=== PATIENT | female | born 1965 | race Hispanic/Latino ===

== ENCOUNTER 2018-07-21 09:23 | Emergency (ER) | payer MEDICAID ==
[2018-07-21 09:44] VITALS: BP 161/119; PULSE 73; RESP 18; TEMP 97.6; O2SAT 95; BMI 26.6
--- NOTE | 2018-07-21 09:58 | ED PDOC ---
Arrival/HPI <Romeo Marinelli - Last Filed: 07/21/18 11:38> - History of Present Illness Narrative History of Present Illness (Text): 07/21/18 09:53 52F w/ no significant PMH reported that she stubbed R great toe on stairs yesterday evening. Patient soaked her toe in epsome salt and reported worsening in ecchymosis, edema, erythema. She reports she is unable to bear weight on her foot and is having difficulty ambulating at this time. She reports worsening in pain of her R great toe described as a throbbing sensation. ALL: Penicillin PMH: Denies Social: 1ppd active smoker x 35 years Time/Duration: 24 hours Symptom Onset: Sudden Symptom Course: Worsening Quality: Throbbing <Mayo Trujillo - Last Filed: 07/21/18 12:23> - General Chief Complaint: Lower Extremity Problem/Injury Time Seen by Provider: 07/21/18 09:27 Past Medical History - Provider Review Nursing Documentation Reviewed: Yes - Infectious Disease Hx of Infectious Diseases: None - Reproductive Currently : No - Psychiatric Hx Substance Use: No - Surgical History Hx Orthopedic Surgery: Yes (Right Ankle ([employer])) <Mayo Trujillo - Last Filed: 07/21/18 12:23> Family/Social History - Physician Review Nursing Documentation Reviewed: Yes Family/Social History: Unknown Family HX Smoking Status: Heavy Smoker > 10 Cigarettes Daily Hx Alcohol Use: No Hx Substance Use: No <Mayo Trujillo - Last Filed: 07/21/18 12:23> Allergies/Home Meds <Romeo Marinelli - Last Filed: 07/21/18 11:38> <Mayo Trujillo - Last Filed: 07/21/18 12:23> Allergies/Adverse Reactions: Allergies Penicillins Allergy (Verified 07/21/18 09:56) ANGIOEDEMA Review of Systems - Review of Systems Constitutional: Normal Eyes: Normal ENT: Normal Respiratory: Normal Cardiovascular: Normal Gastrointestinal: Normal Genitourinary Female: Normal Musculoskeletal: Other (R 1st great toe Pain, brusing, numbness/tingling, ) Skin: Normal Neurological: Normal Endocrine: Normal Hemo/Lymphatic: Normal Psychiatric: Normal <Mayo Trujillo - Last Filed: 07/21/18 12:23> Physical Exam Vital Signs Temp Pulse Resp BP Pulse Ox 07/21/18 09:43 97.6 F 73 18 161/119 H 95 <Romeo Marinelli - Last Filed: 07/21/18 11:38> Vital Signs Temp Pulse Resp BP Pulse Ox 07/21/18 09:43 97.6 F 73 18 161/119 H 95 Temperature: Afebrile Blood Pressure: Hypertensive Pulse: Regular Respiratory Rate: Normal Appearance: Positive for: Well-Appearing, Non-Toxic, Comfortable Pain Distress: None Mental Status: Positive for: Alert and Oriented X 3 - Systems Exam Lower Extremity: Present: Other (R 1st great toe with edema + erythema; tender to palpation; able flex/extend on own power; tender to manipulation ) <Mayo Trujillo - Last Filed: 07/21/18 12:23> Medical Decision Making - RAD Interpretation Radiology Orders: 07/21/18 09:57 FOOT RIGHT GREAT TOE ROUTINE [RAD] Stat - Medication Orders Current Medication Orders: Discontinued Medications Ketorolac Tromethamine (Toradol) 15 mg IM STAT STA Stop: 07/21/18 10:04 Last Admin: 07/21/18 10:14 Dose: 15 mg MAR Pain Assessment Document 07/21/18 10:14 OCS (Rec: 07/21/18 10:16 OCS [facility] [id number]) Pain Reassessment Is this a pain reassessment? No Sleep Is patient sleeping during reassessment? No Presence of Pain Presence of Pain Yes Pain Scale Used Protocol: PSCALES Pain Scale Used Numeric Location Left, Right or Bilateral Right Pain Location Body Site Great Toe Description Description Constant Pain Behavior Irritability Facial Grimacing Aggravating Factors ADL's IM Administration Charges Document 07/21/18 10:14 OCS (Rec: 07/21/18 10:16 OCS [facility] [id number]) Injection Site MAR Injection Site Left Arm Charges for Administration # of IM Administrations 1 <Romeo Marinelli - Last Filed: 07/21/18 11:38> ED Course and Treatment: 07/21/18 10:26 Assessment and Plan R 1st great toe trauma; XR to r/o fx Toradol for pain / inflammation control ICE / Cold Compress Progress Notes 07/21/18 10:30 XR foot reveals a no-ndisplaced non-comminuted fx of 2nd metatarsal of R foot 1st digit. Podiatry resident called and will come to evaluate patient. 07/21/18 11:26 Podiatry resident at the bedside evaluating patient. He states patient does not need a splint at this time and can be safely managed with a surgical hard soled shoe and made non-weight bearing. He states patient may use OTC analgesics for pain control and follow up in office with Dr. Macedo(podiatry). <Mayo Trujillo - Last Filed: 07/21/18 12:23> Disposition/Present on Arrival - Present on Arrival Any Indicators Present on Arrival: No - Disposition Have Diagnosis and Disposition been Completed?: Yes Disposition Time: 11:31 Patient Plan: Discharge <Romeo Marinelli - Last Filed: 07/21/18 11:38> - Present on Arrival Any Indicators Present on Arrival: No History of DVT/PE: No History of Uncontrolled Diabetes: No Urinary Catheter: No History of Decub. 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
--- NOTE | 2018-07-21 12:03 | CP.PCM.CON ---
<Thaddeus Mcneil - Last Filed: 07/21/18 12:04> History of Present Illness - History of Present Illness History of Present Illness: Consult not e for attending Dr. Macedo; 52 y/o F Patient with No PMH seen ad evaluated in the ED for pain, bruises and swelling in the right big toe. Patient states that since 3 weeks she is having pain in her right big toe. She states that the pain is 8/10 on VAS scale. The pain increases by walking. She states that yesterday night she tripped and twisted her right foot behind her. She states that she started to feel the pain immediatly and her Right hallux developed bruises and swelling at 3 am. She denies any tingling, numbness or burning sensation in her leg. She denies any recent F/N/V/C/C/CP/SOB. PMH: None PSH: ORIF R ankle. Allergies: Penicillins Social Hx: Smoker 1 ppd for 35 years, Use EtOH exessivly in the weekends (9 Drinks almost), Denies illicit drug use. Review of Systems - Review of Systems Review of Systems: As per HPI - Constitutional Constitutional: As Per HPI Past Patient History - Infectious Disease Hx of Infectious Diseases: None - Past Social History Smoking Status: Heavy Smoker > 10 Cigarettes Daily - PSYCHIATRIC Hx Substance Use: No - SURGICAL HISTORY Hx Orthopedic Surgery: Yes (Right Ankle ([employer]ins [employer]s)) Meds Home Medications: Home Medication List Medication Instructions Recorded Confirmed Type Ibuprofen [Motrin] 600 mg PO Q6H #12 tab 07/21/18 Rx Allergies/Adverse Reactions: Allergies Allergy/AdvReac Type Severity Reaction Status Date / Time Penicillins Allergy ANGIOEDEMA Verified 07/21/18 09:56 Physical Exam - Constitutional Appears: Well, Non-toxic, No Acute Distress - Head Exam Head Exam: ATRAUMATIC, NORMOCEPHALIC - Extremities Exam Additional comments: RLE Focused exam: Vasc: DP/PT 2/4, Cap refill < 3 sec to all digits, Temp gradient warm to cool from proximal to distal. Moderate non pitting edema noted in the right hallux. Neuro: Gross and protective sensations are intact. Derm: Moderate non pitting edema noted in the right hallux with bruises. No open lesions. No clinical signs of active infection. Scars of previous ankle surgery noted in the R anthony-malleolar area MSK: Muscle power intact 5/5 to all groups. Pain onnpalpating the R hallux, Pain with ROM of the R hallux. - Neurological Exam Neurological exam: Alert, Oriented x3 - Psychiatric Exam Psychiatric exam: Normal Affect, Normal Mood Results - Vital Signs Recent Vital Signs: Last Vital Signs Temp 97.6 F 07/21/18 09:43 Pulse 73 07/21/18 09:43 Resp 18 07/21/18 09:43 BP 161/119 H 07/21/18 09:43 Pulse Ox 95 07/21/18 09:43 Assessment & Plan - Assessment and Plan (Free Text) Assessment: 52 y/o F Patient with No PMH seen ad evaluated in the ED for pain, bruises and swelling in the right big toe 2ry to non displaced, oblique fracture proximal phalanx right hallux. Plan: Patient seen and evaluated in the ED. Plan discussed in details with attending Dr. Macedo Charts, labs and vitals reviewed: Afebrile. Ordered serum uric acid: Pending. Right foot X-ray: Non displaced, oblique fracture proximal phalanx right hallux. Patient R hallux splinted then put in leonor bandage. Patient instructed to keep the dressing C/D/I Patient educated and instructed to do RICE protocol. Patient instructed to WBAT to her R foot in a surgical shoe. Dispensed left surgical shoe. Discussed with the patient the effect of smoking in delaying bone healing. Patient advised to quit smoking. Patient expressed verbal understanding. Patient to follow up with Dr. Macedo upon discharge. Thank you for the consult. - Date & Time Date: 07/21/18 Time: 11:54 <Eulogio Macedo - Last Filed: 07/22/18 09:31> Results - Vital Signs Recent Vital Signs: Last Vital Signs Temp 97.6 F 07/21/18 09:43 Pulse 73 07/21/18 09:43 Resp 18 07/21/18 09:43 BP 161/119 H 07/21/18 09:43 Pulse Ox 95 07/21/18 09:43 Attending/Attestation - Attestation I have personally seen and examined this patient.: Yes I have fully participated in the care of the patient.: Yes I have reviewed all pertinent clinical information: Yes
--- NOTE | 2018-07-21 14:52 | RAD ---
Date of service: 07/21/2018 PROCEDURE: Right Foot Radiographs. HISTORY: trauma COMPARISON: None. FINDINGS: BONES: There is a comminuted minimally displaced fracture of the 1st proximal phalanx. The fracture extends into the distal articular surface. JOINTS: Normal. SOFT TISSUES: Normal. OTHER FINDINGS: None. IMPRESSION: There is a comminuted minimally displaced fracture of the 1st proximal phalanx. The fracture extends into the distal articular surface.
== END 2018-07-21 11:37 | disposition home or self-care (01) ==
LOC: ED 09:23
DX: S92.411A Displaced fracture of proximal phalanx of right great toe, initial encounter for closed fracture (principal); W22.8XXA Striking against or struck by other objects, initial encounter; Y93.01 Activity, walking, marching and hiking; F17.210 Nicotine dependence, cigarettes, uncomplicated
CPT/HCPCS: 73660; 81025; 96372; 99283; J1885

== ENCOUNTER 2018-08-14 08:49 | Outpatient (CLI) | payer MEDICAID | END 2018-08-14 08:50 | disposition home or self-care (01) | LOC: RAD 08:49 ==

== ENCOUNTER 2018-09-02 13:35 | Outpatient (CLI) | payer MEDICAID | END 2018-09-02 13:36 | disposition home or self-care (01) | LOC: RAD 13:35 ==

== ENCOUNTER 2018-09-30 13:07 | Outpatient (CLI) | payer MEDICAID | END 2018-09-30 13:08 | disposition home or self-care (01) | LOC: RAD 13:07 ==